=== PATIENT | male | born 1965 | race Two or more races ===

== ENCOUNTER 2019-12-13 22:55 | Emergency (ER) | payer SELFPAY ==
[~2019-12-13] VITALS: Ht 170.2 cm; Wt 100.0 kg
--- NOTE | 2019-12-13 23:07 | NUR ---
Patient BIB [facility] c/o SOB. Patient states it started approx 1 hour ago. Patient states he has had a lot of stress lately. Denies CP. Patient is in NAD. Respirations even and unlabored.
[2019-12-13] MEDS ORDERED: SODIUM CHLORIDE FLUSH 10ML SYR IVF ONE (23:30)
[2019-12-13 23:53] LABS: MEAN CORPUSCULAR HEMOGLOBIN 19.4 pg (27.5-34.5); MEAN CORPUSCULAR HGB CONC 29.9 g/dL (33.2-36.2); MEAN CORPUSCULAR VOLUME 64.9 fL (81-97); MEAN PLATELET VOLUME 7.8 fL (7.4-10.4); PLATELET COUNT 219 x10^3/uL (130-400); RED BLOOD COUNT 4.14 x10^6/uL (4.38-5.82)
[2019-12-13 23:54] LABS: MD YES
[2019-12-13 23:58] LABS: ALANINE AMINOTRANSFERASE 18 U/L (12-78); ALBUMIN 3.4 g/dL (3.4-5.0); ANION GAP 6 mmol/L (5-15); CALCIUM 8.4 mg/dL (8.5-10.1); CHLORIDE 109 mmol/L (98-107); CREATININE 0.83 mg/dL (0.7-1.3)
[2019-12-14] LABS: BASOS% (MANUAL) 2 % (0-1); EOS#(MANUAL) 0.16 x10^3/uL (0.0-0.4); EOS% (MANUAL) 3 % (1-7); LYMPH#(MANUAL) 0.73 x10^3/uL (1-3.4); LYMPHS% (MANUAL) 14 % (22-44); MICROCYTOSIS 2+; MONOS#(MANUAL) 0.31 x10^3/uL (0.3-2.7); MONOS% (MANUAL) 6 % (2-9); SEGS% (MANUAL) 75 % (42-75)
[2019-12-14 00:01] LABS: HYPOCHROMIA 1+; OVALOCYTES 1+; POLYCHROMASIA 1+
[2019-12-14 00:02] LABS: ALKALINE PHOSPHATASE 84 U/L (45-117); BILIRUBIN,TOTAL 0.5 mg/dL (0.2-1.0); TROPONIN I < 0.015 ng/mL (0.000-0.045)
[2019-12-14 00:03] LABS: <PLATELET ESTIMATE> ADEQUATE; <PLT MORPHOLOGY> NORMAL PLT MORPH; ANISOCYTOSIS 2+
--- NOTE | 2019-12-14 00:09 | NUR ---
Patient reports blood in stool 7-10 days ago which has been going on intermittently for a few months. He described it as bright red.
[2019-12-14 01:06] VITALS: BP 120/64
--- NOTE | 2019-12-14 01:11 | NUR ---
TASK RN: BLOOD VERIFIED WITH NASH ETIENNE. TRANSFUSION STARTED, JOSHUA THORNTON.
[2019-12-14 01:30] VITALS: BP 123/66
--- NOTE | 2019-12-14 02:03 | NUR ---
Float RN: Pt assisted to restroom, blood placed on iv pole for ease of transfer. Pt ambulated with strong steady gait.
[2019-12-14 02:23] VITALS: BP 114/67
[2019-12-14 03:02] VITALS: BP 112/71
== END 2019-12-14 03:15 | disposition home or self-care (01) ==
LOC: ED 12-14 03:10
DX: D50.9 Iron deficiency anemia, unspecified (principal); R06.00 Dyspnea, unspecified
CPT/HCPCS: 36415; 36430; 71045; 80053; 83880; 84484; 85025; 86850; 86900; 86923; 93005; 99285; P9016

== ENCOUNTER 2020-03-12 03:15 | Emergency (ER) | payer SELFPAY ==
[2020-03-12] MEDS ORDERED: MAALOX/HYOSCYAMINE/LIDOCAINE 45 ML BTL ONE (04:00)
[2020-03-12] MEDS ORDERED: ONDANSETRON ODT 4 MG ONE (04:00)
--- NOTE | 2020-03-12 04:05 | NUR ---
Lab at bedside
--- NOTE | 2020-03-12 04:15 | NUR ---
Pt to BR with steady gait. Will medicate upon return.
[2020-03-12 04:22] LABS: BASOPHILS # (AUTO) 0.04 x10^3/uL (0-0.1); BASOPHILS % (AUTO) 1 % (0-1); EOSINOPHILS # (AUTO) 0.15 x10^3/uL (0-0.4); EOSINOPHILS % (AUTO) 3 % (1-7); LYMPHOCYTES # (AUTO) 1.23 x10^3/uL (1-3.4); LYMPHOCYTES % (AUTO) 25 % (22-44); MD NO; MEAN CORPUSCULAR HEMOGLOBIN 27.9 pg (27.5-34.5); MEAN CORPUSCULAR HGB CONC 32.2 g/dL (33.2-36.2); MEAN CORPUSCULAR VOLUME 86.7 fL (81-97); MEAN PLATELET VOLUME 7.9 fL (7.4-10.4); MONOCYTES # (AUTO) 0.54 x10^3/uL (0.2-0.8); MONOCYTES % (AUTO) 11 % (2-9); NEUTROPHILS # (AUTO) 2.91 x10^3/uL (1.8-6.8); NEUTROPHILS % (AUTO) 60 % (42-75); PLATELET COUNT 178 x10^3/uL (130-400); RED BLOOD COUNT 4.51 x10^6/uL (4.38-5.82)
--- NOTE | 2020-03-12 04:26 | NUR ---
Pt medicated per NOV for epigastric pain.
[2020-03-12 04:30] LABS: ALANINE AMINOTRANSFERASE 36 U/L (12-78); ALBUMIN 3.3 g/dL (3.4-5.0); ANION GAP 4 mmol/L (5-15); CALCIUM 8.3 mg/dL (8.5-10.1); CHLORIDE 108 mmol/L (98-107); CREATININE 0.81 mg/dL (0.7-1.3)
[2020-03-12] MEDS ORDERED: MAALOX/HYOSCYAMINE/LIDOCAINE 45 ML BTL PO ONE (04:30)
[2020-03-12] MEDS ORDERED: ONDANSETRON 4 MG TABLET PO ONE (04:30)
[2020-03-12] MEDS ORDERED: ONDANSETRON ODT 4 MG PO ONE (04:30)
[2020-03-12 04:32] LABS: ALKALINE PHOSPHATASE 74 U/L (45-117); BILIRUBIN,TOTAL 0.5 mg/dL (0.2-1.0); TOTAL PROTEIN 6.8 g/dL (6.4-8.2)
--- NOTE | 2020-03-12 04:42 | NUR ---
Pt states pain now 10/05. States he feels much better at this time. Labs back. Chart up for recheck. Call light in reach.
== END 2020-03-12 05:05 | disposition home or self-care (01) ==
LOC: ED 04:12
DX: K29.00 Acute gastritis without bleeding (principal); R19.5 Other fecal abnormalities; R10.13 Epigastric pain; R11.0 Nausea
CPT/HCPCS: 36415; 80053; 83690; 85025; 99283; Q0162

== ENCOUNTER 2020-04-20 09:50 | Emergency (ER) | payer SELFPAY ==
[~2020-04-20] VITALS: Ht 170.2 cm; Wt 91.4 kg
--- NOTE | 2020-04-20 10:37 | NUR ---
PT CAME IN CO OF [facility] FROM [facility] X 2 DAYS. PT STATES THIS IS THE 3RD TIME SINCE NOVEMBER THIS HAS HAPPENED AND THAT HE GOT A BLOOD TRANSFUSION THE LAST TIME. PT WAS GIVEN INSTRUCTIONS TO SEE A GI DOCTOR TO GET A COLONOSCOPY BUT HE HAS YET TO DO SO BECAUSE HE DOES NOT HAVE INSURANCE. PT ALSO CO OF NAUSEA, DIZZINESS AND A "PRESSURE, LIKE I HAVE TO USE THE RESTROOM EVERY HOUR OR SO". PT IS RESTING IN [facility]. CONNECTED TO MONITORING EQUIPMENT. BLANKET PROVIDED.
[2020-04-20] MEDS ORDERED: ONDANSETRON 2MG/ML, 2ML IVPush ONE (11:00)
[2020-04-20] MEDS ORDERED: MAALOX/HYOSCYAMINE/LIDOCAINE 45 ML BTL PO ONE (11:00)
[2020-04-20] MEDS ORDERED: SODIUM CHLORIDE FLUSH 10ML SYR IVF ONE (11:00)
[2020-04-20] MEDS ORDERED: FAMOTIDINE 20 MG/2 ML IV ONE (11:00)
[2020-04-20] MEDS ORDERED: ONDANSETRON 2MG/ML, 2ML ONE (11:01)
[2020-04-20] MEDS ORDERED: MAALOX/HYOSCYAMINE/LIDOCAINE 45 ML BTL ONE (11:01)
[2020-04-20] MEDS ORDERED: FAMOTIDINE 20 MG/2 ML ONE (11:01)
--- NOTE | 2020-04-20 11:15 | NUR ---
PT UP SELF TO BATHROOM. MEDICATED PER NOV. UA SENT
[2020-04-20 11:24] LABS: BASOPHILS # (AUTO) 0.02 x10^3/uL (0-0.1); BASOPHILS % (AUTO) 0 % (0-1); EOSINOPHILS # (AUTO) 0.02 x10^3/uL (0-0.4); EOSINOPHILS % (AUTO) 1 % (1-7); LYMPHOCYTES # (AUTO) 0.77 x10^3/uL (1-3.4); LYMPHOCYTES % (AUTO) 16 % (22-44); MD NO; MEAN CORPUSCULAR HEMOGLOBIN 27.4 pg (27.5-34.5); MEAN CORPUSCULAR HGB CONC 31.6 g/dL (33.2-36.2); MEAN CORPUSCULAR VOLUME 86.6 fL (81-97); MEAN PLATELET VOLUME 7.7 fL (7.4-10.4); MONOCYTES # (AUTO) 0.32 x10^3/uL (0.2-0.8); MONOCYTES % (AUTO) 7 % (2-9); NEUTROPHILS % (AUTO) 77 % (42-75); PLATELET COUNT 193 x10^3/uL (130-400); RED BLOOD COUNT 4.64 x10^6/uL (4.38-5.82); RED CELL DISTRIBUTION WIDTH 16.7 % (9.4-14.8)
[2020-04-20 11:32] LABS: ALBUMIN 3.6 g/dL (3.4-5.0); ANION GAP 4 mmol/L (5-15); CALCIUM 8.8 mg/dL (8.5-10.1); CHLORIDE 107 mmol/L (98-107)
[2020-04-20 11:36] LABS: ALANINE AMINOTRANSFERASE 31 U/L (12-78); ALKALINE PHOSPHATASE 93 U/L (45-117); BILIRUBIN,TOTAL 0.7 mg/dL (0.2-1.0); CREATININE 0.75 mg/dL (0.7-1.3); TOTAL PROTEIN 7.4 g/dL (6.4-8.2)
[2020-04-20 12:19] LABS: MICROSCOPIC NOT IND
[2020-04-20 12:50] VITALS: BP 114/79
== END 2020-04-20 13:02 | disposition home or self-care (01) ==
LOC: ED 12:01
DX: K29.01 Acute gastritis with bleeding (principal); K92.1 Melena; R10.84 Generalized abdominal pain; R11.0 Nausea
CPT/HCPCS: 36415; 80053; 81003; 83690; 85025; 93005; 96374; 96375; 99284; J2405; J3490

== ENCOUNTER 2020-04-27 13:44 | Emergency (ER) | payer SELFPAY ==
[~2020-04-27] VITALS: Ht 170.2 cm; Wt 89.2 kg
[2020-04-27 13:48] VITALS: BP 127/88
--- NOTE | 2020-04-27 14:00 | NUR ---
BRICK BURNER HEAD: PT TO ROOM FROM [facility]DI MORALES
--- NOTE | 2020-04-27 14:13 | NUR ---
PT STATES HE FEELS LIKE HIS HEART IS BEATING FAST. HE WAS SEEN HERE A FEW DAYS AGO AND THEN HIS DOCTOR YESTERDAY. HIS DOCTOR REDUCED AN UMBILICAL HERNIA AND TAUGHT PT HOW TO DO IT. PT DENIES PAIN BUT DOES NOT FEEL IT IS RIGHT. PT STATES HE FEELS ANXIOUS, ARMS FEEL NUMB, AND HE DOES NOT HAVE AN APPETITE
[2020-04-27 15:34] LABS: BASOPHILS # (AUTO) 0.02 x10^3/uL (0-0.1); BASOPHILS % (AUTO) 0 % (0-1); EOSINOPHILS # (AUTO) 0.08 x10^3/uL (0-0.4); EOSINOPHILS % (AUTO) 2 % (1-7); LYMPHOCYTES # (AUTO) 1.07 x10^3/uL (1-3.4); LYMPHOCYTES % (AUTO) 21 % (22-44); MD NO; MEAN CORPUSCULAR HEMOGLOBIN 26.8 pg (27.5-34.5); MEAN CORPUSCULAR VOLUME 86.3 fL (81-97); MEAN PLATELET VOLUME 7.6 fL (7.4-10.4); MONOCYTES # (AUTO) 0.47 x10^3/uL (0.2-0.8); MONOCYTES % (AUTO) 9 % (2-9); NEUTROPHILS # (AUTO) 3.44 x10^3/uL (1.8-6.8); NEUTROPHILS % (AUTO) 68 % (42-75); PLATELET COUNT 202 x10^3/uL (130-400); RED BLOOD COUNT 4.34 x10^6/uL (4.38-5.82); RED CELL DISTRIBUTION WIDTH 16.9 % (9.4-14.8)
[2020-04-27 15:41] LABS: ALANINE AMINOTRANSFERASE 22 U/L (12-78); ALBUMIN 3.2 g/dL (3.4-5.0); ANION GAP 7 mmol/L (5-15); CALCIUM 8.1 mg/dL (8.5-10.1); CHLORIDE 107 mmol/L (98-107); CREATININE 0.69 mg/dL (0.7-1.3)
[2020-04-27 15:44] LABS: ALKALINE PHOSPHATASE 80 U/L (45-117); BILIRUBIN,TOTAL 0.7 mg/dL (0.2-1.0)
--- NOTE | 2020-04-27 16:57 | NUR ---
AFTER MD RE-EVAL, PT GIVEN DISCHARGE INSTRUCTIONS AND AMBULATED TO DISCHARGE WINDOW STEADY GAIT
== END 2020-04-27 16:57 | disposition home or self-care (01) ==
LOC: ED 16:24
DX: K92.1 Melena (principal); R00.2 Palpitations; F41.1 Generalized anxiety disorder; R42 Dizziness and giddiness; D63.8 Anemia in other chronic diseases classified elsewhere
CPT/HCPCS: 36415; 71045; 80053; 85025; 93005; 99285

== ENCOUNTER 2020-09-17 17:23 | Emergency (ER) | payer OTHER ==
[~2020-09-17] VITALS: Ht 170.2 cm; Wt 89.9 kg
[2020-09-17] MEDS ORDERED: MAALOX/HYOSCYAMINE/LIDOCAINE 45 ML BTL PO ONE (19:00)
[2020-09-17] MEDS ORDERED: MAALOX/HYOSCYAMINE/LIDOCAINE 45 ML BTL ONE (19:17)
[2020-09-17 19:20] LABS: BASOPHILS % (AUTO) 1 % (0-1); EOSINOPHILS % (AUTO) 1 % (1-7); LYMPHOCYTES % (AUTO) 17 % (22-44); MEAN CORPUSCULAR HEMOGLOBIN 23.6 pg (27.5-34.5); MEAN CORPUSCULAR HGB CONC 31.7 g/dL (33.2-36.2); MEAN PLATELET VOLUME 8.9 fL (7.4-10.4); MONOCYTES % (AUTO) 10 % (2-9); NEUTROPHILS % (AUTO) 72 % (42-75); PLATELET COUNT 167 x10^3/uL (130-400); RED BLOOD COUNT 4.03 x10^6/uL (4.38-5.82); RED CELL DISTRIBUTION WIDTH 20.2 % (9.4-14.8)
[2020-09-17 19:21] LABS: ALANINE AMINOTRANSFERASE 27 U/L (12-78); ALBUMIN 3.7 g/dL (3.4-5.0); ANION GAP 2 mmol/L (5-15); CALCIUM 8.4 mg/dL (8.5-10.1); CHLORIDE 105 mmol/L (98-107); CREATININE 0.84 mg/dL (0.7-1.3)
[2020-09-17 19:29] LABS: ALKALINE PHOSPHATASE 77 U/L (45-117); BILIRUBIN,TOTAL 0.9 mg/dL (0.2-1.0); TOTAL PROTEIN 7.4 g/dL (6.4-8.2)
[2020-09-17 19:51] LABS: MD MORPH REVIEW ONLY
--- NOTE | 2020-09-17 19:51 | NUR ---
pt report 0/10 pain after gi cocktail
[2020-09-17 19:53] LABS: ANISOCYTOSIS 2+; HYPOCHROMIA 1+; MICROCYTOSIS 1+; OVALOCYTES 1+
[2020-09-17 19:54] LABS: <PLATELET ESTIMATE> ADEQUATE; <PLT MORPHOLOGY> NORMAL PLT MORPH; POLYCHROMASIA 1+
[2020-09-17 20:36] VITALS: BP 124/68
== END 2020-09-17 20:38 | disposition home or self-care (01) ==
LOC: ED 18:51
DX: K29.00 Acute gastritis without bleeding (principal); G89.29 Other chronic pain; R10.13 Epigastric pain
CPT/HCPCS: 36415; 80053; 83690; 85025; 93005; 99284

== ENCOUNTER 2020-09-21 16:38 | Emergency (ER) | payer OTHER ==
[~2020-09-21] VITALS: Ht 170.2 cm; Wt 88.5 kg
[2020-09-21 17:41] LABS: BASOPHILS % (AUTO) 2 % (0-1); EOSINOPHILS % (AUTO) 1 % (1-7); LYMPHOCYTES % (AUTO) 23 % (22-44); MEAN CORPUSCULAR HEMOGLOBIN 23.7 pg (27.5-34.5); MEAN CORPUSCULAR HGB CONC 31.7 g/dL (33.2-36.2); MEAN PLATELET VOLUME 7.7 fL (7.4-10.4); MONOCYTES % (AUTO) 11 % (2-9); NEUTROPHILS % (AUTO) 63 % (42-75); PLATELET COUNT 186 x10^3/uL (130-400); RED BLOOD COUNT 4.14 x10^6/uL (4.38-5.82)
[2020-09-21 17:47] LABS: MD NO
[2020-09-21 17:49] LABS: ANION GAP 4 mmol/L (5-15); CALCIUM 8.5 mg/dL (8.5-10.1); CHLORIDE 105 mmol/L (98-107); CREATININE 0.75 mg/dL (0.7-1.3)
[2020-09-21] MEDS ORDERED: MORPHINE SULFATE 4 MG/ML, 1ML ONE (18:25)
[2020-09-21] MEDS ORDERED: ONDANSETRON 2MG/ML, 2ML ONE (18:25)
[2020-09-21] MEDS ORDERED: MORPHINE SULFATE 4 MG/ML, 1ML IVPush PRN (18:30)
[2020-09-21] MEDS ORDERED: ONDANSETRON 2MG/ML, 2ML IVPush ONE (18:30)
[2020-09-21] MEDS ORDERED: OMNIPAQUE 350 MG/ML, 100ML BOTTLE ONE (18:30)
--- NOTE | 2020-09-21 18:30 | NUR ---
iv started. ordered meds given. pt resting calmly in bed.
[2020-09-21 18:43] LABS: ALBUMIN 3.7 g/dL (3.4-5.0); BILIRUBIN, DIRECT 0.2 mg/dL (0.1-0.2)
[2020-09-21 18:45] LABS: BILIRUBIN,INDIRECT 0.5 mg/dL (0.0-2.0); BILIRUBIN,TOTAL 0.7 mg/dL (0.2-1.0); TOTAL PROTEIN 7.4 g/dL (6.4-8.2)
--- NOTE | 2020-09-21 19:01 | NUR ---
report to kecia hall.
--- NOTE | 2020-09-21 19:03 | NUR ---
report received from maxx hall.
[2020-09-21 20:57] VITALS: BP 128/79
== END 2020-09-21 20:59 | disposition home or self-care (01) ==
LOC: ED 18:18
DX: K92.2 Gastrointestinal hemorrhage, unspecified (principal); R94.31 Abnormal electrocardiogram [ECG] [EKG]
CPT/HCPCS: 36415; 74177; 80048; 80076; 83690; 85025; 86850; 86900; 93005; 96374; 96375; 99285; J2270; J2405; Q9967

== ENCOUNTER 2021-03-07 13:30 | Emergency (ER) | payer OTHER ==
[~2021-03-07] VITALS: Ht 170.2 cm; Wt 88.5 kg
--- NOTE | 2021-03-07 13:52 | NUR ---
DR. ALBERTS AT BEDSIDE.
--- NOTE | 2021-03-07 14:05 | NUR ---
PT HERE FOR C/O HUMMING IN BOTH EARS X7 DAYS AFTER RECEIVING FIRST DOSE OF COVID-19 VACCINE. VSS.
--- NOTE | 2021-03-07 15:38 | NUR ---
PT IN ROOM IN [facility]. VSS.
[2021-03-07 16:16] VITALS: BP 104/63
== END 2021-03-07 16:18 | disposition home or self-care (01) ==
LOC: ED 14:27
DX: R42 Dizziness and giddiness (principal); H93.13 Tinnitus, bilateral; R10.84 Generalized abdominal pain; Z87.11 Personal history of peptic ulcer disease
CPT/HCPCS: 36415; 80047; 99283